=== PATIENT | male | born 1995 | race Two or more races ===

== ENCOUNTER 2018-08-15 19:23 | Emergency (ER) | payer MEDICAID ==
[~2018-08-15] VITALS: Ht 195.6 cm; Wt 158.8 kg
[2018-08-15 23:46] LABS: Urine Bacteria NONE SEEN /hpf (None Seen); Urine Blood Negative /uL (Negative); Urine Mucus FEW (None Seen); Urine Specific Gravity 1.039 (1.001-1.035); Urine WBC 1 /hpf (0 - 3)
[2018-08-16 01:35] VITALS: BP 136/64
[2018-08-16] MEDS ORDERED: KETOROLAC TROMETH 60MG/2ML VIAL IM ONE (01:45)
[2018-08-16] MEDS ORDERED: METHOCARBAMOL 500 MG TAB PO ONE (01:45)
== END 2018-08-16 02:10 | disposition home or self-care (01) ==
LOC: ER 19:33
DX: M54.5 Low back pain (principal); Z88.2 Allergy status to sulfonamides
CPT/HCPCS: 81001; 96372; 99283; J1885